=== PATIENT | female | born 1990 ===

== ENCOUNTER 2022-04-04 13:34 | Emergency (ER) | payer OTHER, BC ==
[~2022-04-04] VITALS: Ht 157.5 cm; Wt 72.6 kg
[~2022-04-04 13:34] MED LIST: AMOX500 PO; BIRTH CONTROL; HYDACE7.5L PO
== END 2022-04-04 16:03 | disposition home or self-care (01) ==
LOC: ER 13:34
DX: S39.012A Strain of muscle, fascia and tendon of lower back, initial encounter (principal); M51.36 Other intervertebral disc degeneration, lumbar region; X50.0XXA Overexertion from strenuous movement or load, initial encounter
CPT/HCPCS: 72131; 81025; J1885